=== PATIENT | female | born 1980 | race Caucasian/White ===

== ENCOUNTER 2020-10-02 09:47 | Outpatient (REF) | payer OTHER, SELFPAY ==
--- NOTE | 2020-10-02 10:00 | XR_ITS ---
EXAMINATION: BILATERAL SHOULDER AND HUMERUS X-RAYS CLINICAL INFORMATION: Pain COMPARISON: None TECHNIQUE: 3 views of each shoulder and 3 views of each humerus FINDINGS: Left shoulder: Bone alignment is normal. No fracture or dislocation is seen. The joint spaces are normal. Soft tissues are normal. Left humerus: Bone alignment is normal. No fracture or dislocation is seen. The joint spaces are normal. The soft tissues are normal. Right shoulder: There are ossifications projecting over the medial humeral head and neck. It is uncertain whether this represents a discrete displaced fracture fragment or periarticular soft tissue ossification. The glenohumeral joint is normal. There is mild arthritis at the acromioclavicular joint. Right humerus: There are again soft tissue ossifications projecting over the medial humeral head and neck questionable for fracture fragment versus periarticular soft tissue ossification. These appear well-corticated and may not be acute. No other fracture is seen. The elbow joint is unremarkable. Soft tissues are unremarkable. XR/XR shoulder LT min 2V IMPRESSION: Left: Normal left shoulder and humerus. Right: Soft tissue ossifications projecting over the medial right humeral head and neck questionable for fracture versus periarticular soft tissue ossifications. This could be better evaluated with Y-view or CT if clinically indicated. Mild arthritis at the acromioclavicular joint.
--- NOTE | 2020-10-02 10:00 | XR_ITS ---
EXAMINATION: BILATERAL SHOULDER AND HUMERUS X-RAYS CLINICAL INFORMATION: Pain COMPARISON: None TECHNIQUE: 3 views of each shoulder and 3 views of each humerus FINDINGS: Left shoulder: Bone alignment is normal. No fracture or dislocation is seen. The joint spaces are normal. Soft tissues are normal. Left humerus: Bone alignment is normal. No fracture or dislocation is seen. The joint spaces are normal. The soft tissues are normal. Right shoulder: There are ossifications projecting over the medial humeral head and neck. It is uncertain whether this represents a discrete displaced fracture fragment or periarticular soft tissue ossification. The glenohumeral joint is normal. There is mild arthritis at the acromioclavicular joint. Right humerus: There are again soft tissue ossifications projecting over the medial humeral head and neck questionable for fracture fragment versus periarticular soft tissue ossification. These appear well-corticated and may not be acute. No other fracture is seen. The elbow joint is unremarkable. Soft tissues are unremarkable. XR/XR humerus LT IMPRESSION: Left: Normal left shoulder and humerus. Right: Soft tissue ossifications projecting over the medial right humeral head and neck questionable for fracture versus periarticular soft tissue ossifications. This could be better evaluated with Y-view or CT if clinically indicated. Mild arthritis at the acromioclavicular joint.
--- NOTE | 2020-10-02 10:00 | XR_ITS ---
EXAMINATION: BILATERAL SHOULDER AND HUMERUS X-RAYS CLINICAL INFORMATION: Pain COMPARISON: None TECHNIQUE: 3 views of each shoulder and 3 views of each humerus FINDINGS: Left shoulder: Bone alignment is normal. No fracture or dislocation is seen. The joint spaces are normal. Soft tissues are normal. Left humerus: Bone alignment is normal. No fracture or dislocation is seen. The joint spaces are normal. The soft tissues are normal. Right shoulder: There are ossifications projecting over the medial humeral head and neck. It is uncertain whether this represents a discrete displaced fracture fragment or periarticular soft tissue ossification. The glenohumeral joint is normal. There is mild arthritis at the acromioclavicular joint. Right humerus: There are again soft tissue ossifications projecting over the medial humeral head and neck questionable for fracture fragment versus periarticular soft tissue ossification. These appear well-corticated and may not be acute. No other fracture is seen. The elbow joint is unremarkable. Soft tissues are unremarkable. XR/XR humerus RT IMPRESSION: Left: Normal left shoulder and humerus. Right: Soft tissue ossifications projecting over the medial right humeral head and neck questionable for fracture versus periarticular soft tissue ossifications. This could be better evaluated with Y-view or CT if clinically indicated. Mild arthritis at the acromioclavicular joint.
--- NOTE | 2020-10-02 10:00 | XR_ITS ---
EXAMINATION: BILATERAL SHOULDER AND HUMERUS X-RAYS CLINICAL INFORMATION: Pain COMPARISON: None TECHNIQUE: 3 views of each shoulder and 3 views of each humerus FINDINGS: Left shoulder: Bone alignment is normal. No fracture or dislocation is seen. The joint spaces are normal. Soft tissues are normal. Left humerus: Bone alignment is normal. No fracture or dislocation is seen. The joint spaces are normal. The soft tissues are normal. Right shoulder: There are ossifications projecting over the medial humeral head and neck. It is uncertain whether this represents a discrete displaced fracture fragment or periarticular soft tissue ossification. The glenohumeral joint is normal. There is mild arthritis at the acromioclavicular joint. Right humerus: There are again soft tissue ossifications projecting over the medial humeral head and neck questionable for fracture fragment versus periarticular soft tissue ossification. These appear well-corticated and may not be acute. No other fracture is seen. The elbow joint is unremarkable. Soft tissues are unremarkable. XR/XR shoulder RT min 2V IMPRESSION: Left: Normal left shoulder and humerus. Right: Soft tissue ossifications projecting over the medial right humeral head and neck questionable for fracture versus periarticular soft tissue ossifications. This could be better evaluated with Y-view or CT if clinically indicated. Mild arthritis at the acromioclavicular joint.
== END 2020-10-02 09:48 | disposition home or self-care (01) ==
LOC: HO.HMGCX 09:47
PROVIDERS: PCP Internal Medicine; Visit Provider Nurse Practitioner Family
DX: M25.519 Pain in unspecified shoulder (principal); M79.629 Pain in unspecified upper arm
CPT/HCPCS: 73030; 73060

== ENCOUNTER → 2020-10-16 10:07 | Outpatient (BNVA) | payer OTHER, SELFPAY | PROVIDERS: Visit Provider Orthopaedic Surgery | DX: Z76.89 Persons encountering health services in other specified circumstances (principal) ==

== ENCOUNTER 2020-11-04 11:00 | Outpatient (RCR) | payer OTHER, SELFPAY ==
--- NOTE | 2020-11-01 10:09 | MHC.PT.EP ---
[facility] [place] Office [place] Office [place] Office [address] Mando Melgar [address] [phone] F: [phone] F: [phone] F: [phone] F: [phone] Physical Therapy Plan of Care Date of Evaluation: 11/01/20 Date of Surgery: NA Diagnosis: Pain in unspecified upper arm; pain in unspecified shoulder Assessment: 40 y/o RHD F referred to PT with B shoulder pain. She sustained B shoulder soft tissue injuries and possible small R humeral fracture on 09/27/2020 after syncope from smoking marijuana and low blood sugar. She did not go to the ED due to fear of COVID and f/u with PCP a few days later due to B UE pain. Reports pain and difficulty washing her hair, pulling up pants, reaching overhead, donning clothing, lifting, sleeping, and grooming. Examination shows significantly decreased B shoulder A/PROM all planes, decreased B shoulder and elbow strength, pain, and impaired postural awareness. Recommend PT 2x/week for 6 weeks to address impairments, implement HEP, and optimize functional mobility. Frequency and Duration: The patient will be seen 2x/week for 6 weeks Short Term Goals: 3 weeks: 1. I with HEP 2. Improve B shoulder flexion to 120 3. Improve B shoulder IR to 60 Urologist Goals: 6 weeks: 1. I with HEP and self management of sx 2. Pt will demosntrate WFL shoulder AROM in order to reach overhead to wash hair 3. 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 Manual therapy to restore motion and function. Therapeutic exercise to improve strength and flexibility. Neuromuscular re-education for posture and balance. Therapeutic activities to return to functional activities of daily living. Please sign and return to therapist. Thank you for your referral.
--- NOTE | 2020-12-09 08:46 | MHC.PT.DC ---
[facility] [place] Office [place] Office [place] Office [address] Mando Melgar [address] [phone] F: [phone] F: [phone] F: [phone] F: [phone] Physical Therapy Discharge Report Diagnosis: Pain in unspecified upper arm; pain in unspecified shoulder Date of Surgery: NA Date of Evaluation: 11/01/20 Date of Discharge: 12/09/20 Treatments to Date: 2 Cancellations to Date: 0 No Shows to Date: 0 Discharge Status: Patient Elected to Stop Discharge Summary: Pt called to hold PT due to co-pay. Discussed on telephone importance of HEP and kept chart open for 30 days in case patient was able to continue with PT. D/c at this time as she has not returned > 30days. Electronically signed by: Sury Farris PT DPT Please sign and return to therapist. Thank you for your referral.
== END 2020-12-09 08:46 | disposition other institution (70) ==
LOC: HO.PTCHIC 11:00
PROVIDERS: PCP Internal Medicine; Visit Provider Orthopaedic Surgery
DX: M79.629 Pain in unspecified upper arm (principal); M25.519 Pain in unspecified shoulder
CPT/HCPCS: 97014; 97110; 97140; 97161

== ENCOUNTER 2021-11-26 09:00 | Outpatient (RCR) | payer OTHER, SELFPAY ==
--- NOTE | 2022-03-18 07:46 | MHC.PT.DC ---
[facility] [place] Office [place] Office [place] Office [address] Mando Melgar [address] [phone] F: [phone] F: [phone] F: [phone] F: [phone] Physical Therapy Discharge Report Diagnosis: bilateral shoulder pain Date of Surgery: Date of Evaluation: 10/16/21 Date of Discharge: 12/03/21 Treatments to Date: 3 Cancellations to Date: 0 No Shows to Date: 0 Discharge Status: Improved Function Independent with HEP Discharge Summary: Pt elected to stop PT for shoulder at this time and continue with HEP. 11/26/21: resumed program with focus on ER/IR/flexion AAROM/PROM. Pt with some postural improvement with ROM 11/05/21: updated HEP and educated thoroughly on importance of performance over the weekend to progress NV. 11/03/21: pt progressing well with skilled PT. Compliant with HEP. added IR stretching and wall slides to HEP. Patient is a 41 year old R handed female who presents with s/s consistent with bilateral shoulder pain. 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 Patient past medical history includes R shoulder fracture and . Current impairments include pain, posture, ROM, strength, activity tolerance and functional mobility. Functional limitations include decreased ability to dress, reach overhead, behind back and out to the side, carry, lift, sleep, and perform weight bearing activities.. Patient is motivated with good rehab potential. Skilled PT will address impairments and functional limitations in order to achieve goals. Electronically signed by: Tyler Kelley, PT Please sign and return to therapist. Thank you for your referral.
== END 2022-04-06 11:46 | disposition home or self-care (01) ==
LOC: HO.PTCHIC 09:00
PROVIDERS: PCP Internal Medicine; Visit Provider Physician Assistant Medical
DX: M25.511 Pain in right shoulder (principal); M25.512 Pain in left shoulder
CPT/HCPCS: 97110; 97140; 97161

== ENCOUNTER 2023-02-25 07:16 | Outpatient (REF) | payer OTHER, SELFPAY ==
[2023-02-25 11:22] LABS: Hematocrit 43.2 % (37.0-47.0); Hemoglobin 14.2 g/dl (12.0-16.0); Mean Corpuscular HGB Conc 32.9 g/dl (31.0-35.0); Mean Corpuscular Hemoglobin 29.2 pg (27.0-33.0); Mean Corpuscular Volume 88.7 fL (80.0-98.0); Mean Platelet Volume 10.5 fL (9.4-12.3); Platelet Count 296 X10*3/uL (160-400); Red Blood Count 4.87 X10*6/uL (4.20-5.50); Red Cell Distribution Width 13.5 % (11.0-16.0)
[2023-02-25 12:07] LABS: Alanine Aminotransferase 21 U/L (0-31); Albumin Level 4.3 g/dL (3.5-5.0); Alkaline Phosphatase 94 U/L (39-117); Anion Gap 13 (12-20); Aspartate Amino Transferase 22 U/L (5-31); Bilirubin Total 0.2 mg/dL (0.0-1.0); Blood Urea Nitrogen 9 mg/dL (9-16); Calcium 9.4 mg/dL (8.4-10.2); Carbon Dioxide 24 mmol/L (22-29); Chloride 108 mmol/L (96-108); Cholesterol 204 mg/dL; Estimated Glomerular Filt Rate > 60; Glucose Fasting 90 mg/dL (60-99); HDL Cholesterol 52 mg/dL; LDL Cholesterol Calculated 136 mg/dl; Potassium 4.2 mmol/L (3.3-5.1); Sodium 141 mmol/L (135-145); Total Protein 6.8 g/dL (6.5-8.0); Triglycerides 83 mg/dL
[2023-02-25 12:10] LABS: TSH reflex Free T4 1.35 uIU/mL (0.32-4.0)
== END 2023-02-25 07:17 | disposition home or self-care (01) ==
LOC: HO.HMGCLDS 07:16
PROVIDERS: PCP Nurse Practitioner Family; Visit Provider Nurse Practitioner Family
DX: Z00.00 Encounter for general adult medical examination without abnormal findings (principal)
CPT/HCPCS: 36415; 80053; 80061; 84443; 85027

== ENCOUNTER → 2023-04-28 10:41 | Outpatient (BNVA) | payer OTHER, SELFPAY | PROVIDERS: PCP Nurse Practitioner Family; Visit Provider Internal Medicine ==

== ENCOUNTER → 2023-05-04 11:03 | Outpatient (REF) | payer OTHER, SELFPAY ==
--- NOTE | 2023-05-04 11:08 | CA_ITS ---
Transthoracic Echocardiogram Patient (Last, First, Middle): Marisela Underwood M Gender: Female Date of : 1980 Age: 43 Procedure Date: 05/04/2023 Procedure Type: Transthoracic Echocardiogram Location: OP Height: 157.48 cm Weight: 53.07 kg BSA: 1.52 m2 Heart Rate: 65 bpm BP: 120 / 84 mmHg Binitrotoluene Operator: ANA Referring MD: Michele Cuevas MD Symptoms: Z01.818 - Encounter for other preprocedural examination Study Quality: Adequate ECG Rhythm: Sinus Conclusions: - The left ventricular systolic function is normal. The calculated ejection fraction is 66% by biplane method. - No obvious valvular pathology seen on this study. Findings Left Ventricle Normal left ventricular cavity size. There is normal left ventricular wall thickness. The left ventricular systolic function is normal. The calculated ejection fraction is 66% by biplane method. There is no evidence of regional wall motion abnormalities. Diastolic function is normal for age. LV peak GLS -21%. Right Ventricle Normal right ventricular cavity size and systolic function. Atria Both atria are normal in size. Aortic Valve There is a normal trileaflet aortic valve. There is no aortic valve stenosis. There is no aortic valve regurgitation. Mitral Valve The mitral valve appears normal. There is trace mitral valve regurgitation. There is no mitral valve stenosis. Pulmonic Valve There is trace pulmonic valve regurgitation. Tricuspid Valve There is trace tricuspid valve regurgitation. There is no evidence of pulmonary hypertension. Great Vessels The asc aorta is normal in size. Venous The inferior vena cava is normal in size and collapses greater than 50% with inspiration. Pericardium/Pleural There is no evidence of pericardial effusion. Prior Study Comparison No prior study available for comparison. Recommendations, Care & Conclusions No obvious valvular pathology seen on this study. Measurements 2D Linear Measurements IVSd: 0.69 0.6-0.9/0.6-1.0 cm LVIDd: 4.71 3.9-5.3/4.2-5.9 cm LVIDd Index: 3.10 2.4-3.2/2.2-3.1 cm/m2 LVIDs: 3.14 2.0-3.6 cm LVPWd: 0.74 0.7-1.1 cm LA Diam: 3.00 2.7-3.8/3.0-4.0 cm LAIDs Index: 1.97 1.5-2.3 cm/m2 LV Mass: 132.77 67-162/88-224 g LV Mass Index: 87.35 43-95/49-115 g/m2 LVOT Diam: 1.90 3.0+(-)1.3 cm 2D Systolic Function EF 4C: 67.10 >55% EF 2C: 64.00 >55% EF BiP: 65.60 >55% Mitral Valve MV Pk E: 0.77 MV PK A: 0.65 MV Decel Time: 271.00 E/A: 1.20 E'Lateral: 11.70 E'Medial: 9.25 E/E' Med: 8.30 E/E' Lat: 6.60 PHT: 79.00 MVA PHT: 2.78 Decel [place]: 2.85 Aortic Valve AoV Pk Luis A: 1.21 AoV Mn Luis A: 0.93 AoV VTI: 0.28 AoV Pk Grad: 6.00 Aov Mn Grad: 4.00 JANES Cont.VTI: 2.15 LVOT LVOT Pk Luis A: 1.01 LVOT Mn Luis A: 0.63 LVOT VTI: 0.21 LVOT Pk Grad: 4.00 LVOT Mn Grad: 2.00 LVOT Diam: 1.90 LVOT Area: 2.84 Diastolic Function MV Pk E: 0.77 MV Pk A: 0.65 E/A: 1.20 E'Medial: 9.25 E/E' Med: 8.30 E' Laterial: 11.70 E/E' Lat: 6.60 Right Ventricle TAPSE (mm): 25.40 TVS' Luis A: 12.60 Tricuspid Valve TR Pk Luis A: 1.75 TR Pk Grad: 12.00 RA Press: 3.00 RVSP: 15.00 Great Vessels Aorta Sinus of Valsalva: 3.39 2.0-3.[address] [place]: 2.52 1.7-3.4 cm Ao Asc: 2.90 2.1-3.4 cm Updated in Other Vendor System with Status of Final Michele Cuevas MD electronically signed on 05/05/2023 10:19:00 AM with status of Final
== END ==
LOC: HO.CARD 11:03
PROVIDERS: PCP Nurse Practitioner Family; Visit Provider Internal Medicine
DX: Z01.818 Encounter for other preprocedural examination (principal); R94.31 Abnormal electrocardiogram [ECG] [EKG]
CPT/HCPCS: 93306; 93356